=== PATIENT | female | born 1990 | race Hispanic/Latino ===

== ENCOUNTER 2024-09-11 23:37 | Emergency (ER) | payer OTHER ==
[2024-09-12] MEDS ORDERED: Dexamethasone 10 MG/ML VIAL ONE (00:16)
[2024-09-12] MEDS ORDERED: Ipratropium/Albuterol 3 ML NEB ONE (00:16)
== END 2024-09-12 02:01 | disposition home or self-care (01) ==
LOC: ERS 23:37
DX: J45.901 Unspecified asthma with (acute) exacerbation (principal); Z55.6 Problems related to health literacy; Z75.8 Other problems related to medical facilities and other health care; Z79.899 Other long term (current) drug therapy
CPT/HCPCS: 71045; J1100; J7620